=== PATIENT | male | born 1985 | race Caucasian/White ===

== ENCOUNTER 2021-06-28 17:38 | Emergency (ER) | payer MEDICARE, MEDICAID ==
[~2021-06-28 17:38] MED LIST: ARIP5TAB14 PO; CIPR2.5D21 OP; IBUP-1573 PO; LEVO25TA50 PO; VALP250S PO
--- NOTE | 2021-06-28 19:29 | NUR ---
REGISTERED TWICE. SEE OTHER VISIT ON SAME DATE.
[2021-06-28] MEDS ORDERED: CEPH500C2 PO (23:58)
[2021-06-28] MEDS ORDERED: TADA20TA PO (23:58)
[2021-06-28] MEDS ORDERED: HYDR12.55 PO (23:58)
[2021-06-28] MEDS ORDERED: LEVO100C4 PO (23:58)
== END 2021-06-29 09:56 | disposition still patient (30) ==
LOC: ER 17:39
DX: Z00.8 Encounter for other general examination (principal); Z53.21 Procedure and treatment not carried out due to patient leaving prior to being seen by health care provider
CPT/HCPCS: 93005

== ENCOUNTER 2021-06-28 18:31 | Emergency (ER) | payer MEDICARE, MEDICAID ==
[~2021-06-28] VITALS: Ht 165.1 cm; Wt 74.1 kg
[2021-06-28] MEDS ORDERED: LORazepam 2 mg/ml vial IM ONE (22:15)
[2021-06-28] MEDS ORDERED: diphenhydrAMINE 50 mg/ml inj IM ONE (23:00)
[2021-06-28] MEDS ORDERED: haloperidol lactate 5mg/ml inj IM ONE (23:00)
[2021-06-28] MEDS ORDERED: LEVO100C4 PO (23:58)
[2021-06-28] MEDS ORDERED: CEPH500C2 PO (23:58)
[2021-06-28] MEDS ORDERED: HYDR12.55 PO (23:58)
[2021-06-28] MEDS ORDERED: TADA20TA PO (23:58)
[2021-06-29 00:14] LABS: BASOPHILS # (AUTO) 0.1 X10'3 (0-0.2); BASOPHILS % (AUTO) 1.9 % (0-1); EOSINOPHILS # (AUTO) 0.1 X10'3 (0-0.9); EOSINOPHILS % (AUTO) 2.6 % (0-6); HEMATOCRIT 33.7 % (42.0-52.0); HEMOGLOBIN 11.5 g/dl (14.0-17.9); LYMPHOCYTES # (AUTO) 0.8 X10'3 (1.1-4.8); LYMPHOCYTES % (AUTO) 20.8 % (21-51); MEAN CORPUSCULAR HEMOGLOBIN 32.6 PG (27.0-31.0); MEAN CORPUSCULAR HGB CONC 34.1 g/dL (33.0-36.5); MEAN CORPUSCULAR VOLUME 95.6 FL (78-98); MEAN PLATELET VOLUME 6.9 FL (7.4-10.4); MONOCYTES # (AUTO) 0.3 X10'3 (0-0.9); MONOCYTES % (AUTO) 8.5 % (2-12); NEUTROPHILS # (AUTO) 2.5 X10'3 (1.8-7.7); NEUTROPHILS % (AUTO) 66.2 % (42-75); PLATELET COUNT 189 X10'3 (140-440); RED BLOOD COUNT 3.52 X10'6 (4.70-6.10); RED CELL DISTRIBUTION WIDTH 13.9 % (11.5-14.5); WHITE BLOOD COUNT 3.7 X10'3 (4.5-11.0)
[2021-06-29 00:28] LABS: ALANINE AMINOTRANSFERASE 11 U/L (12-78); ALBUMIN 2.6 G/DL (3.4-5.0); ALBUMIN/GLOBULIN RATIO 0.7 (1.1-1.5); ALKALINE PHOSPHATASE 78 IU/L (46-116); ANION GAP 5 (8-16); ASPARTATE AMINO TRANSFERASE 17 U/L (10-37); BILIRUBIN,TOTAL 0.3 MG/DL (0.1-1.0); BLOOD UREA NITROGEN 13 MG/DL (7-18); BUN/CREATININE RATIO 12.7 (5.4-32.0); CALCIUM 8.4 MG/DL (8.5-10.1); CHLORIDE 103 MMOL/L (99-107); CREATININE 1.02 MG/DL (0.60-1.10); GLUCOSE 118 MG/DL (70-104); POTASSIUM 3.5 MMOL/L (3.5-5.1); SODIUM 138 MMOL/L (135-145); TOTAL PROTEIN 6.4 G/DL (6.4-8.2); eGFR 83 ML/MIN
--- NOTE | 2021-06-29 00:34 | NUR ---
PT FAMILY LEFT BEDISDE. PT RESETING ON BACK IN [facility] WITH EYES CLOSED. VSS, NO S/S OF DISTRESS.
[2021-06-29 00:37] LABS: ETHANOL < 0.010 GM/DL (0.0-0.010)
[2021-06-29] MEDS ORDERED: levoTHYROXINE 100mcg tablet PO SCH (08:00)
[2021-06-29] MEDS ORDERED: HYDROchlorothiazide 12.5mg capsule PO SCH (08:00)
[2021-06-29] MEDS ORDERED: cephalexin 500mg capsule PO SCH (08:00)
--- NOTE | 2021-06-29 08:00 | NUR ---
Patient up and restless, says he's hungry, Breakfast tray on its way. He is out of room not wanting to stay in there, GILBERT Drake was able to give ride in wheelchair and redirect back to room.
[2021-06-29] MEDS: cephalexin 500mg capsule PO SCH ×3 (10:09→21:16)
[2021-06-29] MEDS: HYDROchlorothiazide 12.5mg capsule PO SCH (10:09)
[2021-06-29] MEDS: levoTHYROXINE 100mcg tablet PO SCH (10:09)
[2021-06-29] MEDS: TADALAFIL 20 MG PO SCH (10:11)
--- NOTE | 2021-06-29 11:58 | NUR ---
Trying to get Max to pee in the urinal, we need a UA
[2021-06-29 12:21] LABS: URINE AMPHETAMINE SCREEN NEGATIVE (Neg); URINE BARBITUATE SCREEN NEGATIVE (Neg); URINE BENZODIAZEPINES SCREEN NEGATIVE (Neg); URINE CANNABINOID SCREEN NEGATIVE (Neg); URINE COCAINE SCREEN NEGATIVE (Neg); URINE METHADONE SCREEN NEGATIVE (Neg); URINE OPIATE SCREEN NEGATIVE (Neg); URINE PHENCYCLIDINE SCREEN NEGATIVE (Neg)
[2021-06-29] MEDS ORDERED: diphenhydrAMINE 50 mg/ml inj IM ONE (12:30)
[2021-06-29] MEDS ORDERED: LORazepam 2 mg/ml vial IM ONE ×2 (12:30→21:50)
[2021-06-29] MEDS ORDERED: haloperidol lactate 5mg/ml inj IM ONE (12:30)
--- NOTE | 2021-06-29 12:30 | NUR ---
Patient's behavior is become more agitated and restless, per Dr. Deepak ervin to give Ativan 2mg IM, Benadryl 25mg IM and Haldol 10mg IM
[2021-06-29 12:59] LABS: CLARITY,URINE CLEAR (Clear); GLUCOSE, URINE NEGATIVE (Neg); KETONES,URINE NEGATIVE (Neg); LEUKOCYTE ESTERASE ,URINE NEGATIVE (Neg); NITRITES, URINE NEGATIVE (Neg); OCCULT BLOOD,URINE NEGATIVE (Neg); PROTEIN,URINE NEGATIVE (Neg); UROBILINOGEN,URINE 0.2 E.U/dL (0.2-1.0)
[2021-06-29 13:01] LABS: COLOR,URINE STRAW (Yellow); UA COLLECTION TYPE CLN CATCH MIDSTREAM
--- NOTE | 2021-06-29 13:11 | NUR ---
Patient packet faxed to [facility]
--- NOTE | 2021-06-29 13:52 | NUR ---
Patient sleeping comfortably on [facility].
--- NOTE | 2021-06-29 17:49 | NUR ---
Spoke an length with family about contacting [facility], as the patient has resources thru them. [facility] has not evaluated him today yet and per overflow they had an emergency, but will be back. They will leave a note and msg for [facility] to come talk with the family when he gets back. Family would like patient to have a CT of head due to his change in behavior over the last few months.
[2021-06-29] MEDS ORDERED: LORazepam 2 mg/ml vial IV ONE (21:10)
[2021-06-30] MEDS ORDERED: diphenhydrAMINE 50 mg/ml inj IM ONE ×2 (07:15→14:45)
[2021-06-30] MEDS ORDERED: haloperidol lactate 5mg/ml inj IM ONE ×2 (07:15→14:45)
[2021-06-30] MEDS ORDERED: LORazepam 2 mg/ml vial IM ONE ×3 (07:15→14:45)
--- NOTE | 2021-06-30 08:05 | NUR ---
CASE MANAGEMENT PAGED FOR ASSISTACE ON PT PLACEMENT IN OUTSIDE FACILITY
--- NOTE | 2021-06-30 08:21 | NUR ---
case management, mateo young to call family for pt to go home and seek placement by primary care Otherwise Business Systems Advisor will address tomorrow AM, thursday.
--- NOTE | 2021-06-30 08:29 | NUR ---
return page regarding patient placement, spoke with primary nurse, explained that [facility] not available today and the challenges of placing mentally disabled, left voice mail for mother Wendy, will continue to follow
--- NOTE | 2021-06-30 11:05 | NUR ---
called irving sofia sister. Will bring home med.
--- NOTE | 2021-06-30 11:39 | NUR ---
mateo young will come down and talk to family when they arrive.
--- NOTE | 2021-06-30 12:15 | NUR ---
up sitting in chair, eating lunch
[2021-06-30] MEDS: cephalexin 500mg capsule PO SCH ×3 (12:32→23:05)
[2021-06-30] MEDS: levoTHYROXINE 100mcg tablet PO SCH (12:33)
[2021-06-30] MEDS: HYDROchlorothiazide 12.5mg capsule PO SCH (12:33)
--- NOTE | 2021-06-30 12:45 | NUR ---
family at bedside. irving sister, mom marlon, cousin vick
[2021-06-30] MEDS: TADALAFIL 20 MG PO SCH (13:00)
--- NOTE | 2021-06-30 14:04 | NUR ---
Met with mother, sister and niece, mother states that she wants to take patient home, sister and niece concerns over care, explained that patient does not meet criteria for admission to hospital, mother states that she is not connected to [facility] any longer, encouraged to restablish and they can provide services in the home or find appropriate placement, mother got very upset at the idea of placement and said she wanted to take him home, sister Nimisha [phone], expressing concerns over mother cognitive state, and the ability to care for patient, explained that would ask [facility] to file APS report and offer other resources the next business day Addendum: 06/30/21 at 1448 by CHASE will order home health with nursing and [facility]
--- NOTE | 2021-06-30 14:40 | NUR ---
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 [facility] would not register him until thursday bc the holiday. Sister also concerned about his new incontinence over a few months, will bring up with primary care dr. They saw primary care dr. benson on jun 17. No sleep aid provided then, and pt was agitated at appt. Pt has been standing at home, yelling out, and not sleeping. Pt mother Wendy is becoming more cognitively confused and cannot care for him any longer.
--- NOTE | 2021-06-30 14:43 | NUR ---
pt aggitated. Family left. Pt moved to bed 14 for better visual.
--- NOTE | 2021-06-30 14:54 | NUR ---
sent home med to pharmacy
--- NOTE | 2021-06-30 15:04 | NUR ---
spoke to vascular on phone will come down.
--- NOTE | 2021-06-30 15:56 | NUR ---
ultrasound at bedside.
[2021-07-01] MEDS: levoTHYROXINE 100mcg tablet PO SCH (08:23)
[2021-07-01] MEDS: cephalexin 500mg capsule PO SCH ×2 (08:23→13:03)
[2021-07-01] MEDS: HYDROchlorothiazide 12.5mg capsule PO SCH (08:23)
--- NOTE | 2021-07-01 08:37 | NUR ---
PT WAS IN HALLWAY, REDIRECTED BACKED TO ROOM . INCONT OF LARGE STOOL AND URINE.
[2021-07-01] MEDS ORDERED: quetiapine 100mg tablet PO STA (08:40)
[2021-07-01] MEDS ORDERED: LORazepam 2 mg/ml vial IM ONE ×2 (08:40→16:30)
--- NOTE | 2021-07-01 08:45 | NUR ---
PT YELLING HAVING OUTBURST. INFORMED DR. MARIN, PLEASE SEE NEW ORDERS.
[2021-07-01] MEDS: TADALAFIL 20 MG PO SCH (08:50)
[2021-07-01 08:59] VITALS: BP 101/54
[2021-07-01] MEDS ORDERED: divalproex 250mg tablet, delayed-release PO STA (12:26)
[2021-07-01] MEDS ORDERED: OLANZapine 5mg rapidly disint. tablet PO ONE (12:30)
[2021-07-01] MEDS ORDERED: DIVA250T15 PO (16:37)
[2021-07-01] MEDS ORDERED: OLAN10TA3 PO (16:37)
[2021-07-01] MEDS ORDERED: divalproex 250mg tablet, delayed-release PO SCH (17:30)
== END 2021-07-01 17:57 | disposition home or self-care (01) ==
LOC: ER 18:32
DX: R22.43 Localized swelling, mass and lump, lower limb, bilateral (principal); Z20.822 Contact with and (suspected) exposure to COVID-19; R07.89 Other chest pain; R51.9 Headache, unspecified; K62.89 Other specified diseases of anus and rectum; N48.89 Other specified disorders of penis; R62.50 Unspecified lack of expected normal physiological development in childhood; I27.20 Pulmonary hypertension, unspecified; E03.9 Hypothyroidism, unspecified; Q90.9 Down syndrome, unspecified; Z88.8 Allergy status to other drugs, medicaments and biological substances; Z79.2 Long term (current) use of antibiotics; Z79.899 Other long term (current) drug therapy
CPT/HCPCS: 36415; 70450; 71045; 80053; 80305; 80320; 81003; 83880; 84443; 85025; 87635; 93005; 93971; 96372; 99285; C9803; J1200; J1630; J2060

== ENCOUNTER 2021-12-21 07:45 | Inpatient (IN) | payer MEDICARE, MEDICAID ==
[~2021-12-21] VITALS: Ht 160 cm; Wt 97.7 kg
[~2021-12-21 07:45] MED LIST changes: -ARIP5TAB14 PO; +CEPH500C2 PO; -CIPR2.5D21 OP; +DIVA250T15 PO; +HYDR12.55 PO; -IBUP-1573 PO; +LEVO100C4 PO; -LEVO25TA50 PO; +OLAN10TA3 PO; +TADA20TA PO; -VALP250S PO
[2021-12-21] MEDS ORDERED: piperacillin/tazo 3.375gm/50ml 50 ML IV ONE (08:10)
[2021-12-21] MEDS ORDERED: normal saline 1000ML IV soln IV ONE (08:10)
[2021-12-21 08:48] LABS: BASOPHILS % (AUTO) 0.3 % (0-1); EOSINOPHILS # (AUTO) 0.1 X10'3 (0-0.9); EOSINOPHILS % (AUTO) 0.6 % (0-6); HEMATOCRIT 45.3 % (42.0-52.0); HEMOGLOBIN 15.3 g/dl (14.0-17.9); LYMPHOCYTES # (AUTO) 0.7 X10'3 (1.1-4.8); LYMPHOCYTES % (AUTO) 6.1 % (21-51); MEAN CORPUSCULAR HEMOGLOBIN 32.8 PG (27.0-31.0); MEAN CORPUSCULAR HGB CONC 33.9 g/dL (33.0-36.5); MEAN CORPUSCULAR VOLUME 96.7 FL (78-98); MEAN PLATELET VOLUME 7.4 FL (7.4-10.4); MONOCYTES # (AUTO) 0.4 X10'3 (0-0.9); MONOCYTES % (AUTO) 3.5 % (2-12); NEUTROPHILS # (AUTO) 9.9 X10'3 (1.8-7.7); NEUTROPHILS % (AUTO) 89.5 % (42-75); PLATELET COUNT 198 X10'3 (140-440); RED BLOOD COUNT 4.68 X10'6 (4.70-6.10); RED CELL DISTRIBUTION WIDTH 15.6 % (11.5-14.5); WHITE BLOOD COUNT 11.1 X10'3 (4.5-11.0)
[2021-12-21 09:05] LABS: ALANINE AMINOTRANSFERASE 39 U/L (12-78); ALBUMIN 3.3 G/DL (3.4-5.0); ALBUMIN/GLOBULIN RATIO 0.7 (1.1-1.5); ALKALINE PHOSPHATASE 97 IU/L (46-116); ANION GAP 8 (8-16); ASPARTATE AMINO TRANSFERASE 32 U/L (10-37); BILIRUBIN,TOTAL 0.5 MG/DL (0.1-1.0); BLOOD UREA NITROGEN 21 MG/DL (7-18); BUN/CREATININE RATIO 16.3 (5.4-32.0); CALCIUM 8.6 MG/DL (8.5-10.1); CHLORIDE 105 MMOL/L (99-107); CREATININE 1.29 MG/DL (0.60-1.10); GLUCOSE 117 MG/DL (70-104); POTASSIUM 4.2 MMOL/L (3.5-5.1); SODIUM 138 MMOL/L (135-145); TOTAL CARBON DIOXIDE 24.8 MMOL/L (24-32); TOTAL PROTEIN 7.8 G/DL (6.4-8.2); eGFR 63 ML/MIN
[2021-12-21] MEDS ORDERED: acetaminophen 325mg tablet PO ONE (09:05)
--- NOTE | 2021-12-21 10:00 | NUR ---
DR ZAMAN AT BEDSIDE .
[2021-12-21] MEDS ORDERED: POTASSIUM BICARB 20meq eff tab 20 MEQ TABLET.EFF PO PRN ×2 (11:00)
[2021-12-21] MEDS ORDERED: magnesium hydroxide 30ml (MOM) UD suspension PO PRN (11:00)
[2021-12-21] MEDS: normal saline 1000ml 1,000 ML IV SCH ×2 (11:00→21:00)
[2021-12-21] MEDS ORDERED: acetaminophen 325mg tablet PO PRN (11:00)
[2021-12-21] MEDS ORDERED: mag hydrox/Alum hydrox/simeth 30ml oral suspension PO PRN (11:00)
[2021-12-21] MEDS ORDERED: ondansetron/PF 4mg/2ml inj IV PRN (11:00)
[2021-12-21] MEDS ORDERED: potassium CL 10mEq/100ml bag 100 ML IV PRN (11:00)
[2021-12-21] MEDS ORDERED: magnesium 2GM in 50ml NS 50 ML IV PRN (11:00)
[2021-12-21] MEDS ORDERED: magnesium 4gm in 100ml NS 100 ML IV PRN (11:00)
[2021-12-21 16:00] VITALS: BP 105/56
[2021-12-21] MEDS: heparin, porcine 5000 units/ml vial SQ SCH ×2 (16:00→23:17)
[2021-12-21] MEDS: piperacillin/tazo 4.5gm/100ml 100 ML IV SCH ×2 (17:19→23:15)
--- NOTE | 2021-12-21 18:30 | NUR ---
Patient in room ORTHO 4012. I have received report from Livia HUNT and had the opportunity to ask questions and assume patient care. Addendum: 12/22/21 at 0007 by Jennifer Collins RN Amended: Links added.
--- NOTE | 2021-12-21 19:34 | NUR ---
Problems reprioritized. Patient report given, questions answered & plan of care reviewed with GILBERT Rodriguez.
[2021-12-21] MEDS: K and/or MAG REPLACEMENT MC SCH (20:00)
--- NOTE | 2021-12-21 20:00 | NUR ---
Pt. awake sitting up in bed denies c/o pain sided with his mother who is at the bed side. Pt. is not unable to contribute to own needs at this time- pt. mother is at bedside giving information on behalf of the pt. Addendum: 12/22/21 at 0143 by Jennifer Collins RN Amended: Links added.
[2021-12-21] MEDS: docusate sod 100mg capsule PO SCH (20:13)
--- NOTE | 2021-12-21 21:00 | NUR ---
A new NS bag in place; reason why I did not dispense a new NS bag at this time. Addendum: 12/22/21 at 0010 by Jennifer Collins RN Amended: Links added.
[2021-12-21] MEDS ORDERED: OLAN10TA73 PO (22:00)
[2021-12-22 06:00] VITALS: BP 137/69
--- NOTE | 2021-12-22 06:40 | NUR ---
Problems reprioritized. Patient report given, questions answered & plan of care reviewed with Romaine HUNT. Addendum: 12/22/21 at 0655 by Jennifer Collins RN Amended: Links added.
[2021-12-22 06:50] LABS: ALANINE AMINOTRANSFERASE 27 U/L (12-78); ALBUMIN 2.9 G/DL (3.4-5.0); ALBUMIN/GLOBULIN RATIO 0.7 (1.1-1.5); ALKALINE PHOSPHATASE 68 IU/L (46-116); ANION GAP 5 (8-16); ASPARTATE AMINO TRANSFERASE 22 U/L (10-37); BILIRUBIN,TOTAL 1.2 MG/DL (0.1-1.0); BLOOD UREA NITROGEN 13 MG/DL (7-18); BUN/CREATININE RATIO 12.7 (5.4-32.0); CALCIUM 8.2 MG/DL (8.5-10.1); CHLORIDE 108 MMOL/L (99-107); CREATININE 1.02 MG/DL (0.60-1.10); GLUCOSE 93 MG/DL (70-104); MAGNESIUM 2.3 MG/DL (1.5-2.4); POTASSIUM 3.5 MMOL/L (3.5-5.1); SODIUM 139 MMOL/L (135-145); TOTAL CARBON DIOXIDE 25.6 MMOL/L (24-32); TOTAL PROTEIN 6.9 G/DL (6.4-8.2); eGFR 83 ML/MIN
[2021-12-22 06:51] LABS: BASOPHILS # (AUTO) 0.1 X10'3 (0-0.2); EOSINOPHILS # (AUTO) 0.2 X10'3 (0-0.9); EOSINOPHILS % (AUTO) 2.4 % (0-6); HEMATOCRIT 39.8 % (42.0-52.0); HEMOGLOBIN 13.7 g/dl (14.0-17.9); LYMPHOCYTES # (AUTO) 1.1 X10'3 (1.1-4.8); LYMPHOCYTES % (AUTO) 14.8 % (21-51); MEAN CORPUSCULAR HEMOGLOBIN 33.4 PG (27.0-31.0); MEAN CORPUSCULAR HGB CONC 34.5 g/dL (33.0-36.5); MEAN CORPUSCULAR VOLUME 96.9 FL (78-98); MEAN PLATELET VOLUME 7.5 FL (7.4-10.4); MONOCYTES # (AUTO) 0.4 X10'3 (0-0.9); MONOCYTES % (AUTO) 5.3 % (2-12); NEUTROPHILS # (AUTO) 5.6 X10'3 (1.8-7.7); NEUTROPHILS % (AUTO) 76.5 % (42-75); PLATELET COUNT 169 X10'3 (140-440); RED BLOOD COUNT 4.11 X10'6 (4.70-6.10); RED CELL DISTRIBUTION WIDTH 15.8 % (11.5-14.5); WHITE BLOOD COUNT 7.4 X10'3 (4.5-11.0)
[2021-12-22] MEDS: normal saline 1000ml 1,000 ML IV SCH ×2 (07:00→16:46)
--- NOTE | 2021-12-22 07:24 | NUR ---
Page Accepted promotional table spacer Message: Fiorella zaragoza rm [id number] critical platelets 49
[2021-12-22] MEDS: heparin, porcine 5000 units/ml vial SQ SCH ×2 (08:00→16:00)
[2021-12-22] MEDS: K and/or MAG REPLACEMENT MC SCH ×2 (08:00→20:00)
[2021-12-22] MEDS: docusate sod 100mg capsule PO SCH ×2 (08:10→21:59)
[2021-12-22] MEDS: piperacillin/tazo 4.5gm/100ml 100 ML IV SCH ×2 (08:19→16:46)
[2021-12-22 10:00] VITALS: BP 120/68
--- NOTE | 2021-12-22 11:54 | NUR ---
promotional table spacer PAGER ID: [phone] MESSAGE: GAVIN DOBSON RM [id number] PATIENT MOM ASKING ABOUT HOME MEDS ( ON MED REC) ORDERED TO GIVE TO HIM HERE. THANK YOU ARIEL HUNT
[2021-12-22] MEDS ORDERED: ziprasidone IM 20mg inj **IM only IM STA (16:04)
[2021-12-22] MEDS ORDERED: ziprasidone IM 20mg inj **IM only IM PRN (16:05)
--- NOTE | 2021-12-22 17:59 | NUR ---
Patient in room ORTHO 4024. I have received report from DAVID HUNT and had the opportunity to ask questions and assume patient care.
--- NOTE | 2021-12-22 18:28 | NUR ---
Patient in room ORTHO 4024. I have received report from GILBERT Mancuso and had the opportunity to ask questions and assume patient care.
--- NOTE | 2021-12-22 18:48 | NUR ---
Patient refused 1800 vitals.
[2021-12-22] MEDS: olanzapine 10mg tablet PO SCH (21:59)
[2021-12-22 22:00] VITALS: BP 111/70
[2021-12-23] MEDS: piperacillin/tazo 4.5gm/100ml 100 ML IV SCH ×3 (00:38→15:47)
--- NOTE | 2021-12-23 05:57 | NUR ---
AGREE WITH SENIOR DOT NET DEVELOPER PHYSICAL ASSESSMENT CHARTED
[2021-12-23 06:00] VITALS: BP 113/67
[2021-12-23 06:00] LABS: BASOPHILS # (AUTO) 0.1 X10'3 (0-0.2); BASOPHILS % (AUTO) 1.5 % (0-1); EOSINOPHILS # (AUTO) 0.2 X10'3 (0-0.9); EOSINOPHILS % (AUTO) 3.3 % (0-6); HEMATOCRIT 40.8 % (42.0-52.0); HEMOGLOBIN 13.8 g/dl (14.0-17.9); LYMPHOCYTES # (AUTO) 1.3 X10'3 (1.1-4.8); LYMPHOCYTES % (AUTO) 23.1 % (21-51); MEAN CORPUSCULAR HEMOGLOBIN 33.2 PG (27.0-31.0); MEAN CORPUSCULAR HGB CONC 33.9 g/dL (33.0-36.5); MEAN PLATELET VOLUME 7.7 FL (7.4-10.4); MONOCYTES # (AUTO) 0.4 X10'3 (0-0.9); NEUTROPHILS # (AUTO) 3.5 X10'3 (1.8-7.7); NEUTROPHILS % (AUTO) 64.1 % (42-75); PLATELET COUNT 188 X10'3 (140-440); RED BLOOD COUNT 4.16 X10'6 (4.70-6.10); RED CELL DISTRIBUTION WIDTH 15.6 % (11.5-14.5); WHITE BLOOD COUNT 5.5 X10'3 (4.5-11.0)
[2021-12-23 06:16] LABS: ALANINE AMINOTRANSFERASE 26 U/L (12-78); ALBUMIN/GLOBULIN RATIO 0.7 (1.1-1.5); ALKALINE PHOSPHATASE 66 IU/L (46-116); ANION GAP 8 (8-16); ASPARTATE AMINO TRANSFERASE 31 U/L (10-37); BILIRUBIN,TOTAL 0.9 MG/DL (0.1-1.0); BLOOD UREA NITROGEN 9 MG/DL (7-18); CALCIUM 8.5 MG/DL (8.5-10.1); CHLORIDE 107 MMOL/L (99-107); CREATININE 1.13 MG/DL (0.60-1.10); GLUCOSE 88 MG/DL (70-104); MAGNESIUM 2.3 MG/DL (1.5-2.4); POTASSIUM 3.7 MMOL/L (3.5-5.1); SODIUM 140 MMOL/L (135-145); TOTAL CARBON DIOXIDE 25.2 MMOL/L (24-32); TOTAL PROTEIN 7.5 G/DL (6.4-8.2); eGFR 73 ML/MIN
--- NOTE | 2021-12-23 06:21 | NUR ---
Problems reprioritized. Patient report given, questions answered & plan of care reviewed with GILBERT Argueta.
--- NOTE | 2021-12-23 06:51 | NUR ---
Patient in room ORTHO 4024. I have received report from Misti BARGER and had the opportunity to ask questions and assume patient care.
[2021-12-23] MEDS: K and/or MAG REPLACEMENT MC SCH ×2 (08:00→19:59)
[2021-12-23 10:00] VITALS: BP 117/60
[2021-12-23] MEDS: levoTHYROXINE 100mcg tablet PO SCH (11:06)
[2021-12-23] MEDS: docusate sod 100mg capsule PO SCH (11:06)
[2021-12-23] MEDS: heparin, porcine 5000 units/ml vial SQ SCH ×3 (11:07→15:48)
[2021-12-23] MEDS: normal saline 1000ml 1,000 ML IV SCH ×3 (13:00→23:00)
[2021-12-23] MEDS ORDERED: ondansetron 4mg rapidly disintigrating tab PO PRN (13:05)
[2021-12-23] MEDS ORDERED: loperamide 2mg capsule PO PRN (16:50)
[2021-12-23] MEDS ORDERED: lactobacillus acidophilus cap PO SCH (17:30)
[2021-12-23 18:00] VITALS: BP 113/70
--- NOTE | 2021-12-23 18:10 | NUR ---
Problems reprioritized. Patient report given, questions answered & plan of care reviewed with Monika HUNT.
[2021-12-23] MEDS: olanzapine 10mg tablet PO SCH (20:02)
[2021-12-23 22:00] VITALS: BP 109/71
[2021-12-24] MEDS: heparin, porcine 5000 units/ml vial SQ SCH ×3 (00:16→16:00)
[2021-12-24] MEDS: piperacillin/tazo 4.5gm/100ml 100 ML IV SCH ×3 (00:17→16:00)
[2021-12-24 06:00] VITALS: BP 104/55
[2021-12-24 07:19] LABS: BASOPHILS # (AUTO) 0.1 X10'3 (0-0.2); EOSINOPHILS # (AUTO) 0.2 X10'3 (0-0.9); EOSINOPHILS % (AUTO) 5.3 % (0-6); HEMATOCRIT 39.5 % (42.0-52.0); HEMOGLOBIN 13.4 g/dl (14.0-17.9); LYMPHOCYTES # (AUTO) 1.2 X10'3 (1.1-4.8); LYMPHOCYTES % (AUTO) 24.8 % (21-51); MEAN CORPUSCULAR HEMOGLOBIN 32.8 PG (27.0-31.0); MEAN CORPUSCULAR HGB CONC 33.9 g/dL (33.0-36.5); MEAN CORPUSCULAR VOLUME 96.9 FL (78-98); MEAN PLATELET VOLUME 7.5 FL (7.4-10.4); MONOCYTES # (AUTO) 0.4 X10'3 (0-0.9); MONOCYTES % (AUTO) 8.5 % (2-12); NEUTROPHILS # (AUTO) 2.8 X10'3 (1.8-7.7); NEUTROPHILS % (AUTO) 59.4 % (42-75); PLATELET COUNT 175 X10'3 (140-440); RED BLOOD COUNT 4.08 X10'6 (4.70-6.10); RED CELL DISTRIBUTION WIDTH 15.4 % (11.5-14.5); WHITE BLOOD COUNT 4.7 X10'3 (4.5-11.0)
[2021-12-24] MEDS ORDERED: lactobacillus rhamnosus 10,000 MMU CELLS/CAPSULE PO SCH (07:30)
[2021-12-24 07:58] LABS: ALANINE AMINOTRANSFERASE 21 U/L (12-78); ALBUMIN 2.8 G/DL (3.4-5.0); ALBUMIN/GLOBULIN RATIO 0.7 (1.1-1.5); ALKALINE PHOSPHATASE 73 IU/L (46-116); ANION GAP 7 (8-16); ASPARTATE AMINO TRANSFERASE 23 U/L (10-37); BILIRUBIN,TOTAL 0.7 MG/DL (0.1-1.0); BLOOD UREA NITROGEN 8 MG/DL (7-18); BUN/CREATININE RATIO 7.2 (5.4-32.0); CALCIUM 8.4 MG/DL (8.5-10.1); CHLORIDE 108 MMOL/L (99-107); CREATININE 1.11 MG/DL (0.60-1.10); GLUCOSE 93 MG/DL (70-104); POTASSIUM 3.7 MMOL/L (3.5-5.1); SODIUM 143 MMOL/L (135-145); TOTAL CARBON DIOXIDE 28.2 MMOL/L (24-32); TOTAL PROTEIN 7.1 G/DL (6.4-8.2); eGFR 75 ML/MIN
[2021-12-24] MEDS: K and/or MAG REPLACEMENT MC SCH (08:00)
[2021-12-24] MEDS: levoTHYROXINE 100mcg tablet PO SCH (08:45)
--- NOTE | 2021-12-24 08:54 | NUR ---
Initial: Pt admitted w/ PNA, sepsis, and acute respiratory failure per EMR. Currently on MM5 diet per HR ASSOCIATE recs w/ mostly 100% intake of meals meeting needs at this time. LBM 12/23 has received PRN imodium. No nutrition interventions implemented at this time. Will continue to monitor. Recs: 1. Continue MM5 diet as tolerated per HR ASSOCIATE recs 2. Bowel care per rx 3. Scaled wts Addendum: 12/24/21 at [address] Amended: Links added.
[2021-12-24] MEDS: normal saline 1000ml 1,000 ML IV SCH (09:00)
[2021-12-24 10:00] VITALS: BP 121/65
[2021-12-24] MEDS ORDERED: levoFLOXACIN 500mg tablet PO SCH (11:00)
[2021-12-24] MEDS ORDERED: LEVO500T90 PO (11:57)
--- NOTE | 2021-12-24 14:26 | NUR ---
O2 Sat at rest on room air:_85__% If below 89%: Recovery O2 Sat at rest on _2__LPM:_94__%:___% via nc (mask/nasal cannula, etc..) No further documentation is necessary. If O2 Sat did not drop below 89% on room air,ambulate patient on room air. O2 Sat while ambulating on room air:___% Recovery O2 Sat while ambulating on ___LPM:___% No further documentation is necessary. If patient does not drop below 89% while ambulating, he/she does not qualify for home O2.
--- NOTE | 2021-12-24 17:38 | NUR ---
Patient discharged with mother. Patient mother said she would absolutely not take him home on 02 because that it would end up having him put in a home. I said the 02 is easy to operate. She said she did not want anything to have the potential to explode. She said the patient also wouldn't wear it and she would not be able to keep it on him. I let Dr Reyes know.
== END 2021-12-24 17:30 | disposition home health service (06) | DRG 871 ==
LOC: ER 07:46 → ED HOLD 11:04 → EDBEDREQ 14:21 → ORTHO 4S 15:27
PROVIDERS: ADMIT Family Medicine; ATTEND Family Medicine
DX: A41.9 Sepsis, unspecified organism (principal); G93.41 Metabolic encephalopathy; J18.9 Pneumonia, unspecified organism; J96.01 Acute respiratory failure with hypoxia; N17.0 Acute kidney failure with tubular necrosis; Z20.822 Contact with and (suspected) exposure to COVID-19; R19.7 Diarrhea, unspecified; E03.9 Hypothyroidism, unspecified; G80.9 Cerebral palsy, unspecified; I10 Essential (primary) hypertension; Q90.9 Down syndrome, unspecified; Z88.8 Allergy status to other drugs, medicaments and biological substances; Z79.899 Other long term (current) drug therapy
CPT/HCPCS: 36415; 71045; 80053; 83605; 83735; 83880; 84145; 84484; 85025; 87040; 87081; 87502; 87503; 87635; 92508; 92616; 93005; 96365; 99285; A4615; C9803; G0378; J1644; J2405; J2543; J3486; J7030

== ENCOUNTER 2023-07-11 08:18 | Inpatient (IN) | payer MEDICAID, MEDICARE ==
[2023-07-11] VITALS (9 sets, daily range): BP systolic 105–127; BP diastolic 61–71; PULSE 76–103; RESP 17–20; TEMP 98–98.4; O2SAT 91–94
[~2023-07-11] VITALS: Ht 170.2 cm; Wt 128.4 kg
[~2023-07-11 08:18] MED LIST changes: -CEPH500C2 PO; -DIVA250T15 PO; -HYDR12.55 PO; +LEVO-65 PO; -OLAN10TA3 PO; +OLAN10TA73 PO
[2023-07-11 10:15] LABS: BASOPHILS # (AUTO) 0.1 X10'3 (0-0.2); BASOPHILS % (AUTO) 1.1 % (0-1); EOSINOPHILS # (AUTO) 0.2 X10'3 (0-0.9); EOSINOPHILS % (AUTO) 2.7 % (0-6); HEMATOCRIT 45.2 % (42.0-52.0); HEMOGLOBIN 15.3 g/dl (14.0-17.9); LYMPHOCYTES # (AUTO) 1.4 X10'3 (1.1-4.8); LYMPHOCYTES % (AUTO) 19.9 % (21-51); MEAN CORPUSCULAR HEMOGLOBIN 33.2 PG (27.0-31.0); MEAN CORPUSCULAR HGB CONC 33.8 g/dL (33.0-36.5); MEAN CORPUSCULAR VOLUME 98.2 FL (78-98); MEAN PLATELET VOLUME 7.4 FL (7.4-10.4); MONOCYTES # (AUTO) 0.6 X10'3 (0-0.9); MONOCYTES % (AUTO) 9.2 % (2-12); NEUTROPHILS # (AUTO) 4.7 X10'3 (1.8-7.7); NEUTROPHILS % (AUTO) 67.1 % (42-75); PLATELET COUNT 240 X10'3 (140-440); RED CELL DISTRIBUTION WIDTH 15.9 % (11.5-14.5)
[2023-07-11 10:38] LABS: ALANINE AMINOTRANSFERASE 10 U/L (12-78); ALBUMIN 2.9 G/DL (3.4-5.0); ALBUMIN/GLOBULIN RATIO 0.6 (1.1-1.5); ALKALINE PHOSPHATASE 63 IU/L (46-116); ANION GAP 5 (8-16); ASPARTATE AMINO TRANSFERASE 13 U/L (10-37); BILIRUBIN,TOTAL 0.3 MG/DL (0.1-1.0); BLOOD UREA NITROGEN 11 MG/DL (7-18); BUN/CREATININE RATIO 12.5 (10.0-20.0); CALCIUM 8.4 MG/DL (8.5-10.1); CHLORIDE 98 MMOL/L (99-107); CREATININE 0.88 MG/DL (0.60-1.10); GLUCOSE 86 MG/DL (70-104); POTASSIUM 4.5 MMOL/L (3.5-5.1); PRO BRAIN NATRIURETIC PEPTIDE 252 PG/ML (0-125); SODIUM 134 MMOL/L (135-145); TOTAL CARBON DIOXIDE 30.6 MMOL/L (24-32); TOTAL PROTEIN 7.4 G/DL (6.4-8.2); eCRCL 100 ML/MIN; eGFR > 90 ML/MIN
[2023-07-11] MEDS: methylPREDNISolone sod succ 125mg/2ml vial IV ONE (10:55)
[2023-07-11] MEDS: CefTRIAXone 2gm/D5W 50ml BAG 50 ML IV SCH (10:56)
[2023-07-11] MEDS ORDERED: LEVO150T PO (11:00)
[2023-07-11] MEDS ORDERED: OLAN15TA3 PO (11:00)
[2023-07-11] MEDS ORDERED: VALP250C44 PO ×2 (11:01→11:02)
[2023-07-11] MEDS ORDERED: CHOL20002 PO (11:03)
[2023-07-11] MEDS ORDERED: CARB-268 (11:04)
[2023-07-11] MEDS ORDERED: HYDR-3686 PO (11:04)
[2023-07-11] MEDS: ipratropium/albuterol 3ml nebule NEB ONE (11:20)
[2023-07-11] MEDS ORDERED: diphenhydrAMINE 25mg capsule PO PRN (11:30)
[2023-07-11] MEDS ORDERED: magnesium hydroxide 30ml (MOM) UD suspension PO PRN (11:30)
[2023-07-11] MEDS ORDERED: morphine 2 MG/ML inj. syringe IV PRN ×2 (11:30)
[2023-07-11] MEDS ORDERED: HYDROcodone/acetaminophen 5mg/325mg tablet PO PRN (11:30)
[2023-07-11] MEDS ORDERED: bisacodyl 10mg suppository rectal RC PRN (11:30)
[2023-07-11] MEDS ORDERED: diphenhydrAMINE 50 mg/ml inj IV PRN (11:30)
[2023-07-11] MEDS ORDERED: ondansetron 4mg rapidly disintigrating tab PO PRN (11:30)
[2023-07-11] MEDS ORDERED: mag hydrox/Alum hydrox/simeth 30ml oral suspension PO PRN (11:30)
[2023-07-11] MEDS ORDERED: acetaminophen 325mg tablet PO PRN (11:30)
[2023-07-11] MEDS ORDERED: HYDROcodone/acetaminophen 10/325mg tab PO PRN (11:30)
[2023-07-11] MEDS ORDERED: ondansetron/PF 4mg/2ml inj IV PRN (11:30)
[2023-07-11] MEDS ORDERED: metoclopramide 5 mg/ml inj IV PRN (11:30)
[2023-07-11] MEDS ORDERED: ipratropium/albuterol 3ml nebule NEB PRN (11:35)
[2023-07-11] MEDS: normal saline 1000ml 1,000 ML IV SCH (11:54)
[2023-07-11 12:23] LABS: APTT 29 SECONDS (22-32); PROTHROMBIN TIME 10.6 SECONDS (9.0-12.0)
[2023-07-11 12:28] LABS: HEMOGLOBIN A1C 5.5 % (4.5-6.2)
[2023-07-11 12:32] LABS: MAGNESIUM 1.9 MG/DL (1.5-2.4); PHOSPHORUS 3.8 MG/DL (2.3-4.5)
[2023-07-11 12:37] LABS: URINE AMPHETAMINE SCREEN NEGATIVE (Neg); URINE BARBITUATE SCREEN NEGATIVE (Neg); URINE BENZODIAZEPINES SCREEN NEGATIVE (Neg); URINE CANNABINOID SCREEN NEGATIVE (Neg); URINE COCAINE SCREEN NEGATIVE (Neg); URINE METHADONE SCREEN NEGATIVE (Neg); URINE OPIATE SCREEN NEGATIVE (Neg); URINE PHENCYCLIDINE SCREEN NEGATIVE (Neg)
[2023-07-11 13:07] LABS: BILIRUBIN,URINE NEGATIVE (Neg); CLARITY,URINE CLEAR (Clear); COLOR,URINE STRAW (Yellow); GLUCOSE, URINE NEGATIVE (Neg); KETONES,URINE NEGATIVE (Neg); LEUKOCYTE ESTERASE ,URINE NEGATIVE (Neg); NITRITES, URINE NEGATIVE (Neg); OCCULT BLOOD,URINE NEGATIVE (Neg); PH,URINE 6.5 (4.8-8.0); PROTEIN,URINE NEGATIVE (Neg); UROBILINOGEN,URINE 0.2 E.U/dL (0.2-1.0)
[2023-07-11 13:17] LABS: UA COLLECTION TYPE NON-SPECIFIED
[2023-07-11 13:32] LABS: THYROID STIMULATING HORMONE 2.06 ulU/ml (0.34-4.50)
[2023-07-11 16:50] LABS: ABG BASE EXCESS 2.5 mmol/L (-2.0-2.0); ABG PCO2 (T) 45.4 mmHg (35.0-48.0); ABG PH (T) 7.407 (7.340-7.440); ABG PO2 (T) 60.7 mmHg (75.0-100.0); ALLEN'S TEST POSITIVE; FCOHb 0.2 % (0.0-3.9); FLOW 10 L/min; FMetHb 0.3 % (0.0-1.5); FO2Hb 90.5 % (94-97); MODE Simple Mask; PATIENT TEMPERATURE 36.8; TOTAL HEMOGLOBIN 16.8 G/dl (14.0-17.9)
[2023-07-11] MEDS: heparin, porcine 5000 units/ml vial SQ SCH (16:53)
[2023-07-11] MEDS: docusate sod 100mg capsule PO SCH (20:36)
[2023-07-11] MEDS: CefTRIAXone/D5W-Rocephin 1gm 50 ML IV SCH (20:36)
[2023-07-12] VITALS (13 sets, daily range): BP systolic 102–126; BP diastolic 60–73; PULSE 75–102; RESP 16–20; TEMP 96.9–99.1; O2SAT 82–97
[2023-07-12 08:13] LABS: ALANINE AMINOTRANSFERASE 11 U/L (12-78); ALBUMIN 2.5 G/DL (3.4-5.0); ALBUMIN/GLOBULIN RATIO 0.6 (1.1-1.5); ALKALINE PHOSPHATASE 59 IU/L (46-116); ANION GAP 3 (8-16); ASPARTATE AMINO TRANSFERASE 10 U/L (10-37); BILIRUBIN,TOTAL 0.2 MG/DL (0.1-1.0); BLOOD UREA NITROGEN 15 MG/DL (7-18); BUN/CREATININE RATIO 17.6 (10.0-20.0); CALCIUM 8.3 MG/DL (8.5-10.1); CHLORIDE 105 MMOL/L (99-107); CHOLESTEROL 171 MG/DL (0-200); CREATININE 0.85 MG/DL (0.60-1.10); GLUCOSE 112 MG/DL (70-104); HDL CHOLESTEROL 43 MG/DL (35-60); LDL CHOLESTEROL 103 MG/DL (50-100); POTASSIUM 4.4 MMOL/L (3.5-5.1); SODIUM 138 MMOL/L (135-145); TOTAL CARBON DIOXIDE 30.1 MMOL/L (24-32); TOTAL PROTEIN 6.7 G/DL (6.4-8.2); TRIGLYCERIDES 84 MG/DL (20-135); eCRCL 111 ML/MIN; eGFR > 90 ML/MIN
[2023-07-12] MEDS: pantoprazole 40mg Tablet.DR PO SCH (08:36)
[2023-07-12] MEDS: azithromycin/NS 500mg/250ml 250 ML IV SCH (09:18)
[2023-07-12 09:19] LABS: BASOPHILS % (AUTO) 0.3 % (0-1); EOSINOPHILS % (AUTO) 0 % (0-6); HEMATOCRIT 41.3 % (42.0-52.0); LYMPHOCYTES # (AUTO) 1.3 X10'3 (1.1-4.8); LYMPHOCYTES % (AUTO) 18.6 % (21-51); MEAN CORPUSCULAR HEMOGLOBIN 33.6 PG (27.0-31.0); MEAN CORPUSCULAR HGB CONC 33.9 g/dL (33.0-36.5); MEAN CORPUSCULAR VOLUME 99.2 FL (78-98); MEAN PLATELET VOLUME 7.8 FL (7.4-10.4); MONOCYTES # (AUTO) 0.6 X10'3 (0-0.9); MONOCYTES % (AUTO) 8.5 % (2-12); NEUTROPHILS % (AUTO) 72.6 % (42-75); PLATELET COUNT 232 X10'3 (140-440); RED BLOOD COUNT 4.16 X10'6 (4.70-6.10); RED CELL DISTRIBUTION WIDTH 16.3 % (11.5-14.5)
[2023-07-13] VITALS (13 sets, daily range): BP systolic 93–117; BP diastolic 57–69; PULSE 67–104; RESP 14–22; TEMP 97.6–98.6; O2SAT 91–100
[2023-07-13 08:55] LABS: BASOPHILS # (AUTO) 0.1 X10'3 (0-0.2); BASOPHILS % (AUTO) 1.3 % (0-1); EOSINOPHILS # (AUTO) 0.1 X10'3 (0-0.9); EOSINOPHILS % (AUTO) 2.4 % (0-6); HEMATOCRIT 42.1 % (42.0-52.0); HEMOGLOBIN 14.2 g/dl (14.0-17.9); LYMPHOCYTES # (AUTO) 1.8 X10'3 (1.1-4.8); LYMPHOCYTES % (AUTO) 34.2 % (21-51); MEAN CORPUSCULAR HEMOGLOBIN 33.2 PG (27.0-31.0); MEAN CORPUSCULAR HGB CONC 33.8 g/dL (33.0-36.5); MEAN CORPUSCULAR VOLUME 98.1 FL (78-98); MEAN PLATELET VOLUME 7.2 FL (7.4-10.4); MONOCYTES # (AUTO) 0.5 X10'3 (0-0.9); MONOCYTES % (AUTO) 9.5 % (2-12); NEUTROPHILS # (AUTO) 2.7 X10'3 (1.8-7.7); NEUTROPHILS % (AUTO) 52.6 % (42-75); PLATELET COUNT 221 X10'3 (140-440); RED BLOOD COUNT 4.29 X10'6 (4.70-6.10); RED CELL DISTRIBUTION WIDTH 16.5 % (11.5-14.5); WHITE BLOOD COUNT 5.2 X10'3 (4.5-11.0)
[2023-07-13 09:13] LABS: ALANINE AMINOTRANSFERASE 32 U/L (12-78); ALBUMIN 2.7 G/DL (3.4-5.0); ALBUMIN/GLOBULIN RATIO 0.7 (1.1-1.5); ALKALINE PHOSPHATASE 61 IU/L (46-116); ANION GAP 3 (8-16); ASPARTATE AMINO TRANSFERASE 34 U/L (10-37); BILIRUBIN,TOTAL 0.1 MG/DL (0.1-1.0); BLOOD UREA NITROGEN 14 MG/DL (7-18); BUN/CREATININE RATIO 16.5 (10.0-20.0); CALCIUM 8.1 MG/DL (8.5-10.1); CHLORIDE 106 MMOL/L (99-107); CREATININE 0.85 MG/DL (0.60-1.10); GLUCOSE 77 MG/DL (70-104); SODIUM 141 MMOL/L (135-145); TOTAL CARBON DIOXIDE 31.6 MMOL/L (24-32); TOTAL PROTEIN 6.8 G/DL (6.4-8.2); eCRCL 111 ML/MIN; eGFR > 90 ML/MIN
[2023-07-13 09:16] LABS: POTASSIUM 4.4 MMOL/L (3.5-5.1)
[2023-07-13] MEDS: temazepam 15mg capsule PO PRN (20:36)
[2023-07-13] MEDS: acetaminophen 325mg tablet PO PRN (20:38)
[2023-07-14] VITALS (12 sets, daily range): BP systolic 93–129; BP diastolic 54–78; PULSE 61–89; RESP 14–20; TEMP 97–98.1; O2SAT 90–97
[2023-07-14 08:00] LABS: BASOPHILS # (AUTO) 0.1 X10'3 (0-0.2); EOSINOPHILS # (AUTO) 0.3 X10'3 (0-0.9); EOSINOPHILS % (AUTO) 6.1 % (0-6); HEMOGLOBIN 13.4 g/dl (14.0-17.9); LYMPHOCYTES # (AUTO) 1.7 X10'3 (1.1-4.8); LYMPHOCYTES % (AUTO) 37.6 % (21-51); MEAN CORPUSCULAR HEMOGLOBIN 33.2 PG (27.0-31.0); MEAN CORPUSCULAR HGB CONC 33.5 g/dL (33.0-36.5); MEAN PLATELET VOLUME 7.4 FL (7.4-10.4); MONOCYTES # (AUTO) 0.5 X10'3 (0-0.9); MONOCYTES % (AUTO) 10.1 % (2-12); NEUTROPHILS % (AUTO) 44.2 % (42-75); PLATELET COUNT 206 X10'3 (140-440); RED BLOOD COUNT 4.04 X10'6 (4.70-6.10); RED CELL DISTRIBUTION WIDTH 16.2 % (11.5-14.5); WHITE BLOOD COUNT 4.6 X10'3 (4.5-11.0)
[2023-07-14 08:05] LABS: ALANINE AMINOTRANSFERASE 41 U/L (12-78); ALBUMIN 2.5 G/DL (3.4-5.0); ALBUMIN/GLOBULIN RATIO 0.6 (1.1-1.5); ALKALINE PHOSPHATASE 65 IU/L (46-116); ANION GAP 4 (8-16); ASPARTATE AMINO TRANSFERASE 29 U/L (10-37); BILIRUBIN,TOTAL 0.2 MG/DL (0.1-1.0); BLOOD UREA NITROGEN 15 MG/DL (7-18); BUN/CREATININE RATIO 17.2 (10.0-20.0); CHLORIDE 104 MMOL/L (99-107); CREATININE 0.87 MG/DL (0.60-1.10); GLUCOSE 92 MG/DL (70-104); POTASSIUM 4.2 MMOL/L (3.5-5.1); SODIUM 138 MMOL/L (135-145); TOTAL CARBON DIOXIDE 29.8 MMOL/L (24-32); TOTAL PROTEIN 6.5 G/DL (6.4-8.2); eCRCL 109 ML/MIN; eGFR > 90 ML/MIN
[2023-07-14] MEDS ORDERED: albuterol 2.5 MG/3 ML nebule NEB PRN (10:30)
[2023-07-14] MEDS: OLANZAPINE 5 MG TABLET PO SCH (23:02)
[2023-07-15] VITALS (11 sets, daily range): BP systolic 109–119; BP diastolic 54–75; PULSE 68–87; RESP 16–20; TEMP 97.6–98.2; O2SAT 84–98
[2023-07-15] MEDS: hydrOXYzine 25 MG tablet PO SCH (02:14)
[2023-07-15 06:20] LABS: BASOPHILS # (AUTO) 0.1 X10'3 (0-0.2); BASOPHILS % (AUTO) 1.7 % (0-1); EOSINOPHILS # (AUTO) 0.4 X10'3 (0-0.9); EOSINOPHILS % (AUTO) 6.7 % (0-6); HEMATOCRIT 41.2 % (42.0-52.0); HEMOGLOBIN 13.9 g/dl (14.0-17.9); LYMPHOCYTES # (AUTO) 1.5 X10'3 (1.1-4.8); LYMPHOCYTES % (AUTO) 28.4 % (21-51); MEAN CORPUSCULAR HEMOGLOBIN 33.3 PG (27.0-31.0); MEAN CORPUSCULAR HGB CONC 33.6 g/dL (33.0-36.5); MEAN CORPUSCULAR VOLUME 98.8 FL (78-98); MEAN PLATELET VOLUME 7.1 FL (7.4-10.4); MONOCYTES # (AUTO) 0.5 X10'3 (0-0.9); MONOCYTES % (AUTO) 9.6 % (2-12); NEUTROPHILS # (AUTO) 2.9 X10'3 (1.8-7.7); NEUTROPHILS % (AUTO) 53.6 % (42-75); PLATELET COUNT 207 X10'3 (140-440); RED BLOOD COUNT 4.17 X10'6 (4.70-6.10); RED CELL DISTRIBUTION WIDTH 16.2 % (11.5-14.5); WHITE BLOOD COUNT 5.4 X10'3 (4.5-11.0)
[2023-07-15 06:38] LABS: ALANINE AMINOTRANSFERASE 46 U/L (12-78); ALBUMIN 2.7 G/DL (3.4-5.0); ALBUMIN/GLOBULIN RATIO 0.6 (1.1-1.5); ALKALINE PHOSPHATASE 86 IU/L (46-116); ANION GAP 4 (8-16); ASPARTATE AMINO TRANSFERASE 25 U/L (10-37); BILIRUBIN,TOTAL 0.2 MG/DL (0.1-1.0); BLOOD UREA NITROGEN 15 MG/DL (7-18); BUN/CREATININE RATIO 17.4 (10.0-20.0); CALCIUM 8.4 MG/DL (8.5-10.1); CHLORIDE 104 MMOL/L (99-107); CREATININE 0.86 MG/DL (0.60-1.10); GLUCOSE 94 MG/DL (70-104); POTASSIUM 4.1 MMOL/L (3.5-5.1); SODIUM 137 MMOL/L (135-145); TOTAL CARBON DIOXIDE 29.3 MMOL/L (24-32); TOTAL PROTEIN 6.9 G/DL (6.4-8.2); eCRCL 110 ML/MIN; eGFR > 90 ML/MIN
[2023-07-15] MEDS ORDERED: TADALAFIL PO SCH (08:00)
[2023-07-15] MEDS: cholecalciferol (vitamin D3) 1,000 unit (25mcg) tablet PO SCH (09:11)
[2023-07-15] MEDS: azithromycin 250mg tablet PO SCH (09:12)
[2023-07-15] MEDS: valproic acid 250mg capsule PO SCH ×2 (09:12→12:56)
[2023-07-15] MEDS: levoTHYROXINE 75mcg tablet PO SCH (09:13)
[2023-07-16 02:00] VITALS: BP 94/60; PULSE 71; RESP 14; TEMP 97.1; O2SAT 94
[2023-07-16 08:01] LABS: BASOPHILS # (AUTO) 0.1 X10'3 (0-0.2); EOSINOPHILS # (AUTO) 0.4 X10'3 (0-0.9); EOSINOPHILS % (AUTO) 7.9 % (0-6); HEMATOCRIT 43.4 % (42.0-52.0); HEMOGLOBIN 14.8 g/dl (14.0-17.9); LYMPHOCYTES # (AUTO) 1.6 X10'3 (1.1-4.8); LYMPHOCYTES % (AUTO) 29.5 % (21-51); MEAN CORPUSCULAR HEMOGLOBIN 33.4 PG (27.0-31.0); MEAN CORPUSCULAR VOLUME 98.1 FL (78-98); MEAN PLATELET VOLUME 7.2 FL (7.4-10.4); MONOCYTES # (AUTO) 0.6 X10'3 (0-0.9); MONOCYTES % (AUTO) 10.4 % (2-12); NEUTROPHILS # (AUTO) 2.8 X10'3 (1.8-7.7); NEUTROPHILS % (AUTO) 50.2 % (42-75); PLATELET COUNT 187 X10'3 (140-440); RED BLOOD COUNT 4.42 X10'6 (4.70-6.10); RED CELL DISTRIBUTION WIDTH 16.5 % (11.5-14.5); WHITE BLOOD COUNT 5.5 X10'3 (4.5-11.0)
[2023-07-16 08:29] LABS: ALANINE AMINOTRANSFERASE 40 U/L (12-78); ALBUMIN 2.6 G/DL (3.4-5.0); ALBUMIN/GLOBULIN RATIO 0.6 (1.1-1.5); ALKALINE PHOSPHATASE 75 IU/L (46-116); ANION GAP 5 (8-16); ASPARTATE AMINO TRANSFERASE 19 U/L (10-37); BILIRUBIN,TOTAL 0.2 MG/DL (0.1-1.0); BLOOD UREA NITROGEN 13 MG/DL (7-18); BUN/CREATININE RATIO 16.5 (10.0-20.0); CALCIUM 8.5 MG/DL (8.5-10.1); CHLORIDE 102 MMOL/L (99-107); CREATININE 0.79 MG/DL (0.60-1.10); GLUCOSE 79 MG/DL (70-104); POTASSIUM 4.2 MMOL/L (3.5-5.1); SODIUM 139 MMOL/L (135-145); TOTAL PROTEIN 6.9 G/DL (6.4-8.2); eCRCL 120 ML/MIN; eGFR > 90 ML/MIN
[2023-07-16] MEDS: furosemide 20 MG/2 ML vial IV ONE (10:47)
[2023-07-16 11:07] VITALS: BP 139/78; PULSE 88; RESP 22; TEMP 98; O2SAT 93
[2023-07-16] MEDS ORDERED: CEFU500T66 PO ×2 (12:20→16:21)
[2023-07-16] MEDS ORDERED: FURO20TA4 PO (12:20)
[2023-07-16] MEDS ORDERED: ONDA4TAB12 PO (12:20)
[2023-07-16] MEDS ORDERED: POTA-205 PO (12:20)
[2023-07-16] MEDS ORDERED: ALBU2.5V7 NEB (12:20)
[2023-07-16] MEDS ORDERED: PANT40TA54 PO (12:23)
[2023-07-16 15:00] VITALS: BP 124/75; PULSE 82; RESP 14; TEMP 97.9; O2SAT 94
[2023-07-16] MEDS ORDERED: furosemide 20 MG/2 ML vial IV SCH (20:00)
== END 2023-07-16 15:00 | disposition home or self-care (01) | DRG 193 ==
LOC: ER 08:18 → ED HOLD 11:34 → EDBEDREQ 17:40 → PCU 3S 19:53
PROVIDERS: ADMIT Family Medicine; ATTEND Family Medicine
PROC: 5A0935A Assistance with Respiratory Ventilation, Less than 24 Consecutive Hours, High Flow/Velocity Cannula (ICD-10-PCS; principal; 2023-07-12)
PROC: 5A0935A Assistance with Respiratory Ventilation, Less than 24 Consecutive Hours, High Flow/Velocity Cannula (ICD-10-PCS; 2023-07-13)
DX: J18.9 Pneumonia, unspecified organism (principal); I50.33 Acute on chronic diastolic (congestive) heart failure; J96.01 Acute respiratory failure with hypoxia; E87.1 Hypo-osmolality and hyponatremia; E44.0 Moderate protein-calorie malnutrition; Z68.41 Body mass index [BMI] 40.0-44.9, adult; I11.0 Hypertensive heart disease with heart failure; E66.01 Morbid (severe) obesity due to excess calories; E86.1 Hypovolemia; Z20.822 Contact with and (suspected) exposure to COVID-19; E88.09 Other disorders of plasma-protein metabolism, not elsewhere classified; G40.909 Epilepsy, unspecified, not intractable, without status epilepticus; E03.9 Hypothyroidism, unspecified; Q90.9 Down syndrome, unspecified; Z88.8 Allergy status to other drugs, medicaments and biological substances; Z79.899 Other long term (current) drug therapy
CPT/HCPCS: 36415; 36600; 71045; 71046; 80053; 80061; 80164; 80305; 81003; 82803; 83036; 83605; 83735; 83880; 84100; 84443; 84484; 85018; 85025; 85610; 85730; 87040; 87081; 87502; 87503; 87811; 93005; 93306; 94640; 94664; 94668; 94760; 99285; A4615; G0378; J0456; J0696; J1644; J1940; J2930; J7030; Q0177

== ENCOUNTER 2024-02-01 08:20 | Emergency (ER) | payer MEDICARE ==
[~2024-02-01] VITALS: Ht 162.6 cm; Wt 105.0 kg
[~2024-02-01 08:20] MED LIST changes: +ALBU2.5V7 NEB; +CARB-268; +CEFU500T66 PO; +CHOL20002 PO; +FURO20TA4 PO; +HYDR-3686 PO; -LEVO-65 PO; -LEVO100C4 PO; +LEVO150T PO; -OLAN10TA73 PO; +OLAN15TA3 PO; +ONDA-243 PO; +PANT40TA54 PO; +POTA-205 PO; +VALP250C44 PO
[2024-02-01 10:27] LABS: RED CELL DISTRIBUTION WIDTH 17.9 % (11.5-14.5)
[2024-02-01 10:29] LABS: HEMATOCRIT 51.5 % (42.0-52.0); HEMOGLOBIN 17.8 g/dl (14.0-17.9); MEAN CORPUSCULAR HEMOGLOBIN 35.4 PG (27.0-31.0); MEAN CORPUSCULAR HGB CONC 34.6 g/dL (33.0-36.5); MEAN CORPUSCULAR VOLUME 102.6 FL (78-98); MEAN PLATELET VOLUME 9.4 FL (7.4-10.4); PLATELET COUNT 185 X10'3 (140-440); RED BLOOD COUNT 5.03 X10'6 (4.70-6.10); WHITE BLOOD COUNT 3.6 X10'3 (4.5-11.0)
[2024-02-01 10:41] LABS: ALANINE AMINOTRANSFERASE 22 U/L (12-78); ALBUMIN 3.5 G/DL (3.4-5.0); ALBUMIN/GLOBULIN RATIO 0.7 (1.1-1.5); ALKALINE PHOSPHATASE 88 IU/L (46-116); ANION GAP 4 (8-16); ASPARTATE AMINO TRANSFERASE 18 U/L (10-37); BILIRUBIN,TOTAL 0.4 MG/DL (0.1-1.0); BLOOD UREA NITROGEN 16 MG/DL (7-18); BUN/CREATININE RATIO 14.4 (10.0-20.0); CALCIUM 9.4 MG/DL (8.5-10.1); CHLORIDE 97 MMOL/L (99-107); CREATININE 1.11 MG/DL (0.60-1.10); GLUCOSE 96 MG/DL (70-104); SODIUM 138 MMOL/L (135-145); TOTAL CARBON DIOXIDE 37.2 MMOL/L (24-32); TOTAL PROTEIN 8.4 G/DL (6.4-8.2); eCRCL 76 ML/MIN; eGFR 74 ML/MIN
[2024-02-01] MEDS ORDERED: AZIT-164 PO (10:48)
[2024-02-01 10:53] LABS: ANISOCYTOSIS 1+; PLATELET ESTIMATE NORMAL; TOTAL CELLS COUNTED 100
[2024-02-01] MEDS: azithromycin 250mg tablet PO ONE (10:54)
[2024-02-01 11:08] VITALS: BP 132/84; PULSE 95; RESP 18; TEMP 98.1; O2SAT 94
== END 2024-02-01 11:20 | disposition home or self-care (01) ==
LOC: ER 08:21 → MERGE 08:21 → ER 11:20
DX: J16.8 Pneumonia due to other specified infectious organisms (principal); Q90.9 Down syndrome, unspecified; E07.9 Disorder of thyroid, unspecified; Z88.8 Allergy status to other drugs, medicaments and biological substances; Z79.899 Other long term (current) drug therapy
CPT/HCPCS: 36415; 71045; 80053; 84484; 85007; 85025; 93005; 99285; A4620